=== PATIENT | male | born 1965 | race Hispanic/Latino ===

== ENCOUNTER 2024-09-30 06:57 | Emergency (ER) | payer OTHER ==
[~2024-09-30] VITALS: Ht 170.2 cm; Wt 51.7 kg
[2024-09-30 07:00] VITALS: PULSE 94; RESP 15; TEMP 97.4; O2SAT 97
[2024-09-30 07:23] LABS: BASOPHILS % 0.5 % (0.0-1.0); EOSINOPHILS # (AUTO) 0.1 (0.0-0.4); EOSINOPHILS % 1.5 % (0.0-6.0); HEMATOCRIT 36.9 % (38.2-49.6); HEMOGLOBIN 13.2 g/dL (14.0-18.0); LYMPHOCYTES % 46.4 % (18.0-39.1); MEAN CORPUSCULAR HEMOGLOBIN 31.5 pg (28-32); MEAN CORPUSCULAR HGB CONC 35.8 g/dL (31-35); MEAN CORPUSCULAR VOLUME 88.1 fL (81-99); MONOCYTES # (AUTO) 0.6 (0.2-0.8); MONOCYTES % 9.2 % (4.4-11.3); NEUTROPHILS # (AUTO) 2.8 (2.1-6.9); NEUTROPHILS % 42.2 % (38.7-80.0); PLATELET COUNT 353 x10e3/uL (140-360); RED BLOOD COUNT 4.19 x10e6/uL (4.3-5.7); RED CELL DISTRIBUTION WIDTH 13.2 % (11.7-14.4); WHITE BLOOD COUNT 6.51 x10e3/uL (4.8-10.8)
[2024-09-30 07:28] LABS: INR 0.95; PARTIAL THROMBOPLASTIN TIME 26.1 seconds (23.8-35.5); PROTHROMBIN TIME 13.5 seconds (11.9-14.5)
[2024-09-30 07:36] LABS: ALBUMIN/GLOBULIN RATIO 1.2 (0.8-2.0); ANION GAP 15.6 mmol/L (8-16); BILIRUBIN,TOTAL 0.5 mg/dL (0.2-1.2); CREATININE, SERUM 0.93 mg/dL (0.72-1.25); MAGNESIUM 1.8 MG/DL (1.3-2.1); POTASSIUM 3.6 mmol/L (3.5-5.1); TOTAL PROTEIN 7.3 g/dL (6.5-8.1)
[2024-09-30 07:39] LABS: TROPONIN I 0.009 ng/mL (0-0.300)
[2024-09-30] MEDS: HYDROCODONE/APAP 7.5MG-325MG 1 EA TAB PO ONE (07:42)
[2024-09-30] MEDS: KETOROLAC TROMETHAMINE 30 MG/ML VIAL IV STA (07:46)
[2024-09-30] MEDS ORDERED: ULTRAM 50MG50 MG PO ×2 (09:28→19:32)
[2024-09-30] MEDS ORDERED: CELEBREX100 MG PO ×2 (09:28→19:29)
[2024-09-30] MEDS ORDERED: METHOCARBAMOL750 MG PO ×3 (09:28→19:40)
== END 2024-09-30 09:43 | disposition home or self-care (01) ==
LOC: ER 07:15
DX: R07.89 Other chest pain (principal); M54.41 Lumbago with sciatica, right side; I10 Essential (primary) hypertension; E11.65 Type 2 diabetes mellitus with hyperglycemia
CPT/HCPCS: 36415; 72131; 72192; 80053; 83735; 84484; 85025; 85610; 85730; 93005; 99284; J1885